=== PATIENT | male | born 1980 | race Caucasian/White ===

== ENCOUNTER 2019-05-21 10:15 | Emergency (ER) | payer SELFPAY ==
[~2019-05-21] VITALS: Ht 182.9 cm; Wt 80.0 kg
[~2019-05-21 10:15] MED LIST: SULF1TAB31 PO
[2019-05-21 10:38] VITALS: BP 161/94; PULSE 113; RESP 18; Ht 182.9 cm; Wt 80.0 kg
== END 2019-05-21 11:00 | disposition home or self-care (01) ==
LOC: E/R 10:15
DX: L03.116 Cellulitis of left lower limb (principal)
CPT/HCPCS: 99283